=== PATIENT | female | born 1965 | race Caucasian/White ===

== ENCOUNTER 2021-04-15 08:15 | Day surgery (SDC) | payer OTHER, SELFPAY ==
[~2021-04-15] VITALS: Ht 157.5 cm; Wt 64.9 kg
[2021-04-15] MEDS ORDERED: diphenhydrAMINE 50 MG/ML VIAL ONE (12:43)
[2021-04-15] MEDS ORDERED: fentaNYL citrate 0.05 MG/ML VIAL ONE (12:44)
[2021-04-15] MEDS ORDERED: MIDAZOLAM 5 MG/5 ML VIAL ONE (12:44)
[2021-04-15] MEDS: fentaNYL citrate 0.05 MG/ML VIAL IVP ONE (12:46)
[2021-04-15] MEDS: MIDAZOLAM 2 MG/2 ML VIAL IVP ONE (12:47)
== END 2021-04-15 13:40 | disposition home or self-care (01) ==
LOC: MDS 08:15 → MMU 11:24 → MDS 13:40
PROVIDERS: ATTEND Internal Medicine Gastroenterology
DX: A06.1 Chronic intestinal amebiasis (principal); K22.70 Barrett's esophagus without dysplasia; Z79.899 Other long term (current) drug therapy; Z20.822 Contact with and (suspected) exposure to COVID-19
CPT/HCPCS: 43239; 87426; 88305; 88313; J2250; J3010; J1200